=== PATIENT | female | born 1995 | race Caucasian/White ===

== ENCOUNTER 2023-08-03 14:25 | Emergency (ER) | payer SELFPAY ==
[~2023-08-03] VITALS: Ht 167.6 cm; Wt 103.6 kg
[2023-08-03 14:30] VITALS: TEMP 98.2
[2023-08-03 15:27] VITALS: BP 112/73; PULSE 67
== END 2023-08-03 15:27 | disposition home or self-care (01) ==
LOC: COL.ER 14:25
DX: F07.81 Postconcussional syndrome (principal)

== ENCOUNTER 2023-08-18 16:52 | Emergency (ER) | payer SELFPAY ==
[~2023-08-18] VITALS: Ht 167.6 cm; Wt 102.3 kg
[2023-08-18 16:58] VITALS: BP 117/69; PULSE 57; TEMP 97.9
[2023-08-18] MEDS ORDERED: Metoclopramide 10 MG TAB PO ONE (18:45)
[2023-08-18] MEDS ORDERED: diphenhydrAMINE 25 MG CAP PO ONE (18:45)
[2023-08-18] MEDS ORDERED: Ketorolac 60 MG/2 ML VIAL IM ONE (18:45)
== END 2023-08-18 19:32 | disposition home or self-care (01) ==
LOC: COL.ER 16:52
DX: S09.90XA Unspecified injury of head, initial encounter (principal); Z87.891 Personal history of nicotine dependence; W22.03XA Walked into furniture, initial encounter; Y92.89 Other specified places as the place of occurrence of the external cause; Y99.0 Civilian activity done for income or pay
CPT/HCPCS: J1885